=== PATIENT | female | born 1985 | race Caucasian/White ===

== ENCOUNTER 2016-10-18 21:50 | Inpatient (IN) | payer OTHER ==
[~2016-10-18] VITALS: Ht 162.6 cm; Wt 96.0 kg
[~2016-10-18 21:50] MED LIST: AMOXICILLIN875 MG PO; AUGMENTIN500 MG PO; BUSPAR10 MG PO; CIPRO500 MG PO; CLINDAMYCIN HC300 MG PO; CLONIDINE HCL0.1 MG PO; HYDROCODON-ACE1 EAC9 PO; IBUPROFEN800 MG PO; LIBRIUM10 MG PO; LIBRIUM25 MG PO; MOTRIN800 MG PO; OXAYDO5 MG PO; PR NATAL 400 C1 EACH PO; PROZAC10 MG PO; TORADOL10 MG PO; TRAZODONE HCL50 MG PO; ULTRAM50 MG PO; ZOFRAN4 MG PO
[2016-10-18 22:47] LABS: HEMATOCRIT 38.4 % (36.0-46.0); MCH 32.2 PG (29.0-34.0); MCHC 34.9 G/DL (30.0-36.0); MCV 92.3 FL (83-99); MEAN PLAT.VOLUME 10.5 uM^3 (9.5-12.4); PLATELET COUNT 272 K/uL (156-360); RBC DIS.WIDTH-CV 11.8 % (11.8-14.6); RBC DIS.WIDTH-SD 40.1 % (39-53); RED BLOOD COUNT 4.16 M/uL (3.80-5.20); WHITE BLOOD COUNT 8.4 K/uL (4.1-10.2)
[2016-10-18 22:56] LABS: CHLORIDE 107 mEq/L (99-109); POTASSIUM 3.5 mEq/L (3.7-5.4); SODIUM 143 mEq/L (136-147)
[2016-10-18 22:58] LABS: GLUCOSE 101 mg/dL (70-99)
[2016-10-18 22:59] LABS: ANION GAP 13 MEQ/L (2-14)
[2016-10-18 23:01] LABS: SERUM ETHYL ALCOHOL < 10 mg/dL
[2016-10-18 23:02] LABS: GFR ESTIMATE (CALCULATED) > 59 mL/min/
[2016-10-18 23:03] LABS: UREA NITROGEN (BUN) 7 mg/dL (9-23)
[2016-10-18 23:14] LABS: COCAINE PRESUMPTIVE POSITIVE (150 ng/mL); METHAMPHETAMINE NEGATIVE (500 ng/mL); OPIATES (MORPHINE) NEGATIVE (100 ng/mL); PHENCYCLIDINE NEGATIVE (25 ng/mL); THC CANNABINOIDS PRESUMPTIVE POSITIVE (50 ng/mL)
[2016-10-18 23:15] LABS: ADD MEDTOX COMMENT Y; AMPHETAMINE NEGATIVE (500 ng/mL); BARBITURATES NEGATIVE (200 ng/mL); BENZODIAZEPINES NEGATIVE (150 ng/mL); INTERNAL CONTROLS VALID? YES; METHADONE NEGATIVE (200 ng/mL); OXYCODONE NEGATIVE (100 ng/mL); PROPOXYPHENE NEGATIVE (300 ng/mL); TRICYCLIC ANTIDEPRESSANTS NEGATIVE (300 ng/mL)
[2016-10-19 04:27] VITALS: BP 115/58
[2016-10-19] MEDS ORDERED: BUSPAR10 MG PO (04:50)
[2016-10-19] MEDS ORDERED: PROZAC10 MG PO (04:50)
[2016-10-19 08:01] VITALS: BP 108/67
[2016-10-19 15:23] VITALS: BP 102/71
[2016-10-20 07:00] VITALS: BP 115/81
== END 2016-10-20 11:01 | disposition home or self-care (01) | DRG 885 ==
LOC: EME 21:50 → EDOF 10-19 02:44 → 1WEST 10-19 02:44 → ENRESERV 10-19 04:22 → 1WEST 10-20 11:01
DX: F33.9 Major depressive disorder, recurrent, unspecified (principal); F11.20 Opioid dependence, uncomplicated; R45.851 Suicidal ideations; F12.90 Cannabis use, unspecified, uncomplicated; F17.210 Nicotine dependence, cigarettes, uncomplicated; F43.10 Post-traumatic stress disorder, unspecified; F41.9 Anxiety disorder, unspecified; F90.8 Attention-deficit hyperactivity disorder, other type; B18.2 Chronic viral hepatitis C
CPT/HCPCS: 80048; 84999; 85027; 90839; 99281; 99285; G0480

== ENCOUNTER 2016-10-21 20:12 | Emergency (ER) | payer OTHER ==
[~2016-10-21] VITALS: Ht 162.6 cm; Wt 94.7 kg
[2016-10-21 22:06] VITALS: BP 121/76
== END 2016-10-21 22:16 | disposition home or self-care (01) ==
LOC: EME → EDBD 20:12 → EME 22:16
DX: T65.891A Toxic effect of other specified substances, accidental (unintentional), initial encounter (principal); F10.10 Alcohol abuse, uncomplicated; F14.90 Cocaine use, unspecified, uncomplicated; F17.200 Nicotine dependence, unspecified, uncomplicated
CPT/HCPCS: 99281; 99285

== ENCOUNTER 2017-02-16 17:11 | Day surgery (SDC) | payer OTHER ==
[~2017-02-16] VITALS: Ht 157.5 cm; Wt 102.0 kg
[2017-02-16 17:56] LABS: CREATININE 1.1 mg/dL (0.6-1.3); POTASSIUM 4.3 mEq/L (3.7-5.4)
[2017-02-16 17:56] LABS: BASOPHIL COUNT 0.1 K/uL (0-0.1); EOSINOPHIL (%) 0.3 % (0-5); EOSINOPHIL COUNT 0.1 K/uL (0-0.3); HEMATOCRIT 35.4 % (36.0-46.0); IMMATURE GRANULOCYTE (%) 0.5 % (0.0-0.7); IMMATURE GRANULOCYTE COUNT 0.1 K/uL; INSTRUMENT ABS NEUTROPHIL CT 11.5 K/uL; LYMPHOCYTE COUNT 3.2 K/uL (1.0-2.8); MCH 31.6 PG (29.0-34.0); MCHC 34.2 G/DL (30.0-36.0); MCV 92.4 FL (83-99); MEAN PLAT.VOLUME 11.6 uM^3 (9.5-12.4); MONOCYTE (%) 4.4 % (3-12); MONOCYTE COUNT 0.7 K/uL (0-0.8); NEUTROPHIL (%) 73.9 % (45-76); NEUTROPHIL COUNT 11.5 K/uL (1.8-6.4); PLATELET COUNT 190 K/uL (156-360); RBC DIS.WIDTH-CV 12.5 % (11.8-14.6); RED BLOOD COUNT 3.83 M/uL (3.80-5.20); WHITE BLOOD COUNT 15.6 K/uL (4.1-10.2)
[2017-02-16 18:14] LABS: CHLORIDE 107 mEq/L (99-109); POTASSIUM 4.4 mEq/L (3.7-5.4); SODIUM 135 mEq/L (136-147)
[2017-02-16 18:16] LABS: GLUCOSE 165 mg/dL (70-99)
[2017-02-16 18:17] LABS: ANION GAP 11 MEQ/L (2-14)
[2017-02-16 18:20] LABS: GFR ESTIMATE (CALCULATED) > 59 mL/min/
[2017-02-16 18:21] LABS: UREA NITROGEN (BUN) 11 mg/dL (9-23)
[2017-02-16 19:05] LABS: QUANTITATIVE HCG 26278.1 MIU/ML
[2017-02-16] MEDS ORDERED: ENDOCET 5-3251 EACH PO (20:34)
[2017-02-16] MEDS ORDERED: IBUPROFEN800 MG PO (20:34)
[2017-02-16 22:22] VITALS: BP 100/55
[2017-02-17 02:51] VITALS: BP 102/49
[2017-02-17 07:35] VITALS: BP 125/54
[2017-02-17 08:47] LABS: EOSINOPHIL (%) 0 % (0-5); HEMATOCRIT 27.9 % (36.0-46.0); IMMATURE GRANULOCYTE (%) 0.4 % (0.0-0.7); INSTRUMENT ABS NEUTROPHIL CT 9.6 K/uL; LYMPHOCYTE COUNT 1.2 K/uL (1.0-2.8); MCH 30.1 PG (29.0-34.0); MCHC 34.1 G/DL (30.0-36.0); MCV 88.3 FL (83-99); MEAN PLAT.VOLUME 10.7 uM^3 (9.5-12.4); MONOCYTE (%) 4.5 % (3-12); MONOCYTE COUNT 0.5 K/uL (0-0.8); NEUTROPHIL (%) 84.9 % (45-76); NEUTROPHIL COUNT 9.6 K/uL (1.8-6.4); PLATELET COUNT 181 K/uL (156-360); RBC DIS.WIDTH-CV 14.7 % (11.8-14.6); RED BLOOD COUNT 3.16 M/uL (3.80-5.20); WHITE BLOOD COUNT 11.4 K/uL (4.1-10.2)
[2017-02-17 11:35] VITALS: BP 108/50
[2017-02-17] MEDS ORDERED: FEOSOL325 MG PO (13:23)
[2017-02-17 15:12] VITALS: BP 127/55
== END 2017-02-17 15:17 ==
LOC: EME 17:11 → SDC 18:14 → ENRESERV 18:42 → 2SOUTH 18:44 → 2EAST 18:44 → ENRESERV 18:58 → 2EAST 21:49
PROVIDERS: Emergency Medicine; Obstetrics & Gynecology
DX: O00.102 Left tubal pregnancy without intrauterine pregnancy (principal); D62 Acute posthemorrhagic anemia; K66.1 Hemoperitoneum; I95.89 Other hypotension; R42 Dizziness and giddiness; Z86.19 Personal history of other infectious and parasitic diseases
CPT/HCPCS: 76801; 80047; 80048; 83030; 83605; 84702; 85025; 86850; 86900; 86901; 86920; 88305; 99281; 99285; G0378; J0330; J1100; J1170; J1885; J2210; J2250; J2405; J2710; J2790; J3010; J7050; J7120; P9016; P9017; P9035; S0020